=== PATIENT | female | born 1955 | race Caucasian/White ===

== ENCOUNTER 2017-08-12 18:06 | Inpatient (IN) | payer MEDICAID ==
[~2017-08-12] VITALS: Ht 162.6 cm; Wt 68.2 kg
[2017-08-12 19:36] LABS: BILIRUBIN TOTAL 0.4 mg/dL (0.20-1.00); CALCIUM 8.3 mg/dL (8.5-10.1); POTASSIUM SERUM 4.1 mmol/L (3.5-5.1); TOTAL PROTEIN, SERUM 6.9 g/dL (6.4-8.2)
[2017-08-12 19:41] LABS: ALBUMIN 3.2 g/dL (3.4-5.0); CREATININE SERUM 6.8 mg/dL (0.6-1.0)
[2017-08-12 19:54] LABS: BASOPHIL % 0.5 % (0-2); PLATELET COUNT 191 x10^3mcL (130-400)
[2017-08-12 19:58] LABS: RED CELL DISTRIBUTION WIDTH 14.6 % (11.5-14.5)
[2017-08-12] MEDS ORDERED: TYLENOL PO (20:11)
[2017-08-12] MEDS ORDERED: ASPIR 8181 MG PO (20:12)
[2017-08-12] MEDS ORDERED: LIPI20 PO (20:12)
[2017-08-12] MEDS ORDERED: NOR5 PO (20:12)
[2017-08-12] MEDS ORDERED: PHOSLO667 MG PO (20:13)
[2017-08-12] MEDS ORDERED: CLOTRIMAZOLE TR10 M1 TOP (20:14)
[2017-08-12] MEDS ORDERED: ROBITUSSIN NIG237 ML PO (20:15)
[2017-08-12] MEDS ORDERED: DRISDOL50000 IU PO (20:16)
[2017-08-12] MEDS ORDERED: FUROSEMIDE40 MG PO (20:17)
[2017-08-12] MEDS ORDERED: INS7030 SC (20:19)
[2017-08-12] MEDS ORDERED: ISOSORBIDE MONO60 MG PO (20:19)
[2017-08-12] MEDS ORDERED: LEVOTHYROXIN0.025 M2 PO (20:20)
[2017-08-12] MEDS ORDERED: METOPROLOL SUC100 M2 PO (20:20)
[2017-08-12] MEDS ORDERED: NIT0.4 SL (20:21)
[2017-08-12] MEDS ORDERED: OCULAR LUBRICANT OP (20:22)
[2017-08-12] MEDS ORDERED: RAN500A PO (20:23)
[2017-08-12] MEDS ORDERED: SERTRALINE25 M1 PO (20:23)
[2017-08-12 21:05] VITALS: BP 162/70
[2017-08-12 21:15] VITALS: Ht 162.6 cm; Wt 68.2 kg
[2017-08-12 21:15] LABS: CHOLESTEROL/HDL RATIO 3.3; MAGNESIUM 2.5 mg/dL (1.8-2.4); PHOSPHOROUS 6.2 mg/dL (2.5-4.9)
[2017-08-12 21:32] LABS: T3 TOTAL 0.79 ng/mL
[2017-08-12 21:39] LABS: FREE T4 0.93 ng/dL (0.76-1.46); FREE THYROXINE INDEX 2.6 ug/dL (1.4-4.5); T4(THYROXINE) 7.6 ug/dL (4.7-13.3)
[2017-08-12 21:55] VITALS: BP 162/70
[2017-08-13] VITALS (7 sets, daily range): BP systolic 149–198; BP diastolic 62–82
[2017-08-13 06:49] LABS: BASOPHIL % 0.4 % (0-2); PLATELET COUNT 157 x10^3mcL (130-400); RED CELL DISTRIBUTION WIDTH 14.1 % (11.5-14.5)
[2017-08-13 07:04] LABS: CALCIUM 8.8 mg/dL (8.5-10.1); CARBON DIOXIDE 21.7 mmol/L (21-32); MAGNESIUM 2.5 mg/dL (1.8-2.4); PHOSPHOROUS 6.1 mg/dL (2.5-4.9); POTASSIUM SERUM 3.6 mmol/L (3.5-5.1)
[2017-08-13 07:17] LABS: CREATININE SERUM 6.9 mg/dL (0.6-1.0)
[2017-08-13 07:18] LABS: microscopic required? YES; urine erythrocyte 1+ (NEGATIVE)
[2017-08-13 08:05] LABS: AMPHETAMINE QUAL UR NONE DETECTED (NEG <=1000)
[2017-08-14 05:44] VITALS: BP 182/76
[2017-08-14 06:02] LABS: BASOPHIL % 0.6 % (0-2); PLATELET COUNT 152 x10^3mcL (130-400); RED CELL DISTRIBUTION WIDTH 14.5 % (11.5-14.5)
[2017-08-14 06:13] LABS: CALCIUM 8.5 mg/dL (8.5-10.1); MAGNESIUM 2.4 mg/dL (1.8-2.4); POTASSIUM SERUM 3.6 mmol/L (3.5-5.1)
[2017-08-14 06:19] LABS: CREATININE SERUM 7.1 mg/dL (0.6-1.0)
[2017-08-14 09:27] VITALS: BP 161/55
[2017-08-14 13:52] VITALS: BP 138/55
[2017-08-14 17:35] VITALS: BP 132/65
[2017-08-14 21:47] VITALS: BP 155/62
[2017-08-15 05:29] VITALS: BP 174/72
[2017-08-15 06:59] LABS: BASOPHIL % 0.4 % (0-2); PLATELET COUNT 154 x10^3mcL (130-400); RED CELL DISTRIBUTION WIDTH 14.3 % (11.5-14.5)
[2017-08-15 07:38] LABS: CALCIUM 8.3 mg/dL (8.5-10.1); CARBON DIOXIDE 21.4 mmol/L (21-32); MAGNESIUM 2.6 mg/dL (1.8-2.4); PHOSPHOROUS 6.5 mg/dL (2.5-4.9); POTASSIUM SERUM 4.3 mmol/L (3.5-5.1)
[2017-08-15 08:16] LABS: CREATININE SERUM 7.9 mg/dL (0.6-1.0)
[2017-08-15 10:16] VITALS: BP 121/64
[2017-08-15 13:56] VITALS: BP 129/69
[2017-08-15 18:00] VITALS: BP 152/60
[2017-08-15 20:31] VITALS: BP 154/46
[2017-08-16 05:33] VITALS: BP 123/56
[2017-08-16 07:04] LABS: BASOPHIL % 0.5 % (0-2); PLATELET COUNT 151 x10^3mcL (130-400); RED CELL DISTRIBUTION WIDTH 13.8 % (11.5-14.5)
[2017-08-16 07:31] LABS: CALCIUM 8.5 mg/dL (8.5-10.1); CARBON DIOXIDE 20.9 mmol/L (21-32); MAGNESIUM 2.4 mg/dL (1.8-2.4); PHOSPHOROUS 6.6 mg/dL (2.5-4.9); POTASSIUM SERUM 4.3 mmol/L (3.5-5.1)
[2017-08-16 07:43] LABS: CREATININE SERUM 7.6 mg/dL (0.6-1.0)
[2017-08-16 09:48] VITALS: BP 136/76
[2017-08-16 12:56] VITALS: BP 124/70
[2017-08-16 15:35] VITALS: BP 121/82
[2017-08-16 18:30] VITALS: BP 133/92
[2017-08-16 21:48] VITALS: BP 147/62
[2017-08-17 05:35] VITALS: BP 167/64
[2017-08-17 06:15] VITALS: BP 145/44
[2017-08-17 06:46] LABS: CALCIUM 8.5 mg/dL (8.5-10.1); CARBON DIOXIDE 30.1 mmol/L (21-32); MAGNESIUM 2.1 mg/dL (1.8-2.4); PHOSPHOROUS 5.1 mg/dL (2.5-4.9); POTASSIUM SERUM 3.8 mmol/L (3.5-5.1)
[2017-08-17 06:58] LABS: CREATININE SERUM 5.2 mg/dL (0.6-1.0)
[2017-08-17 07:47] LABS: BASOPHIL % 0.3 % (0-2); PLATELET COUNT 156 x10^3mcL (130-400); RED CELL DISTRIBUTION WIDTH 14.3 % (11.5-14.5)
[2017-08-17] MEDS ORDERED: ZOFRAN ODT4 MG SL (09:55)
[2017-08-17] MEDS ORDERED: VAS TOP (09:57)
[2017-08-17 10:08] VITALS: BP 156/45
[2017-08-17 11:23] VITALS: BP 156/45
[2017-08-17 14:14] VITALS: BP 119/48
== END 2017-08-17 15:05 | disposition home or self-care (01) | DRG 182 ==
LOC: ED 18:06 → DU 19:55 → MU 19:55 → DU 20:40 → MU 08-15 22:30
PROVIDERS: Emergency Medicine; Family Medicine; Family Medicine Sports Medicine; Surgery; ADMIT Student in an Organized Health Care Education/Training Program
PROC: 05PY3YZ Removal of Other Device from Upper Vein, Percutaneous Approach (ICD-10-PCS; 2017-08-16)
PROC: B543ZZA Ultrasonography of Right Jugular Veins, Guidance (ICD-10-PCS; 2017-08-16)
PROC: B548ZZZ Ultrasonography of Superior Vena Cava (ICD-10-PCS; 2017-08-16)
PROC: 05HM33Z Insertion of Infusion Device into Right Internal Jugular Vein, Percutaneous Approach (ICD-10-PCS; principal; 2017-08-16 14:30)
DX: T82.49XA Other complication of vascular dialysis catheter, initial encounter (principal); N17.0 Acute kidney failure with tubular necrosis; N18.6 End stage renal disease; E44.0 Moderate protein-calorie malnutrition; E87.1 Hypo-osmolality and hyponatremia; I12.0 Hypertensive chronic kidney disease with stage 5 chronic kidney disease or end stage renal disease; I16.0 Hypertensive urgency; E11.22 Type 2 diabetes mellitus with diabetic chronic kidney disease; E11.65 Type 2 diabetes mellitus with hyperglycemia; E11.21 Type 2 diabetes mellitus with diabetic nephropathy; E11.51 Type 2 diabetes mellitus with diabetic peripheral angiopathy without gangrene; E83.41 Hypermagnesemia; E03.9 Hypothyroidism, unspecified; F32.9 Major depressive disorder, single episode, unspecified; R80.9 Proteinuria, unspecified; E83.39 Other disorders of phosphorus metabolism; E78.5 Hyperlipidemia, unspecified; I25.10 Atherosclerotic heart disease of native coronary artery without angina pectoris; D63.1 Anemia in chronic kidney disease; J44.9 Chronic obstructive pulmonary disease, unspecified; Y92.009 Unspecified place in unspecified non-institutional (private) residence as the place of occurrence of the external cause; Y81.2 Prosthetic and other implants, materials and accessory general- and plastic-surgery devices associated with adverse incidents; Z99.2 Dependence on renal dialysis; Z79.4 Long term (current) use of insulin; Z79.82 Long term (current) use of aspirin; Z95.1 Presence of aortocoronary bypass graft; Z87.891 Personal history of nicotine dependence
CPT/HCPCS: 82962; 83880; 84439; A4301; J0690; J1644; J1815; J2001; J2405; J2704; J3010; J7030; J7620; Q0092

== ENCOUNTER 2017-10-21 18:23 | Emergency (ER) | payer MEDICAID ==
[~2017-10-21] VITALS: Ht 160 cm; Wt 71.7 kg
[~2017-10-21 18:23] MED LIST: ASPIR 8181 MG PO; CLOTRIMAZOLE TR10 M1 TOP; DRISDOL50000 IU PO; FUROSEMIDE40 MG PO; INS7030 SC; ISOSORBIDE MONO60 MG PO; LEVOTHYROXIN0.025 M2 PO; LIPI20 PO; METOPROLOL SUC100 M2 PO; NIT0.4 SL; NOR5 PO; OCULAR LUBRICANT OP; PHOSLO667 MG PO; RAN500A PO; ROBITUSSIN NIG237 ML PO; SERTRALINE25 M1 PO; TYLENOL PO; VAS TOP; ZOFRAN ODT4 MG SL
[2017-10-21 18:41] VITALS: Ht 160 cm; Wt 71.7 kg
[2017-10-21 20:24] LABS: BASOPHIL % 0.4 % (0-2); PLATELET COUNT 163 x10^3mcL (130-400)
[2017-10-21 20:26] LABS: CALCIUM 8.6 mg/dL (8.5-10.1); POTASSIUM SERUM 4.3 mmol/L (3.5-5.1)
[2017-10-21 20:32] LABS: CREATININE SERUM 5.8 mg/dL (0.6-1.0)
[2017-10-21 20:42] LABS: T3 TOTAL 0.86 ng/mL
[2017-10-21 20:57] LABS: FREE T4 0.82 ng/dL (0.76-1.46); FREE THYROXINE INDEX 2.4 ug/dL (1.4-4.5); T4(THYROXINE) 7.2 ug/dL (4.7-13.3)
[2017-10-21 23:22] VITALS: BP 182/82
== END 2017-10-21 23:22 | disposition home or self-care (01) ==
LOC: ED 18:23
PROVIDERS: Emergency Medicine
DX: K11.21 Acute sialoadenitis (principal); R22.1 Localized swelling, mass and lump, neck; E11.22 Type 2 diabetes mellitus with diabetic chronic kidney disease; I12.0 Hypertensive chronic kidney disease with stage 5 chronic kidney disease or end stage renal disease; N18.6 End stage renal disease; Z99.2 Dependence on renal dialysis; E03.9 Hypothyroidism, unspecified
CPT/HCPCS: 36415; 84439